=== PATIENT | male | born 1935 | race Caucasian/White ===

== ENCOUNTER 2022-06-26 12:25 | Outpatient (CLI) | payer OTHER | END 2022-06-26 12:26 | disposition home or self-care (01) | LOC: ULT 12:25 | PROVIDERS: ATTEND Student in an Organized Health Care Education/Training Program | DX: R60.0 Localized edema (principal); I08.1 Rheumatic disorders of both mitral and tricuspid valves; I51.7 Cardiomegaly | CPT/HCPCS: 93306 ==

== ENCOUNTER 2025-03-31 09:56 | Emergency (ER) | payer MEDICARE ==
[2025-03-31 12:41] LABS: #Basophils 0.04 10x3/uL (0.0-0.2); #Eosinophils Less than 0.03 10x3/uL (0.0-0.7); #Monocytes 1.24 10x3/uL (0.11-0.59); #Neutrophils 4.37 10x3/uL (1.40-6.50); %Basophils 0.6 % (0.0-1.0); %Eosinophils 0.1 % (0.0-10.0); %Lymphocytes 21.1 % (21.0-51.0); %Monocytes 17.2 % (0.0-10.0); %Neutrophils 60.6 % (42.0-75.0); Hematocrit 40.6 % (42.0-52.0); Hemoglobin 13.6 g/dL (14.0-18.0); Mean Corpuscular Hemoglobin 28.6 pg (27.0-31.0); Mean Corpuscular Volume 85.3 fL (78.0-98.0); Platelet Count 109 10x3/uL (130-400); Red Blood Cell (RBC) Count 4.76 mill/uL (4.70-6.10); White Blood Cell (WBC) Count 7.21 10x3/uL (4.8-10.8)
[2025-03-31 13:06] LABS: Burr Cells SLIGHT = 2-5 cells HPF (0-1); Platelet Adequacy Comment Platelets Decreased
[2025-03-31 13:28] LABS: ALT (SGPT) 18 U/L (Less than 45); AST (SGOT) 32 U/L (11-34); Albumin 3.3 g/dL (3.1-4.5); Alkaline Phosphatase 65 U/L (40-110); BUN (Urea Nitrogen) 12 mg/dL (8.4-25.7); Bilirubin, Total 0.5 mg/dL (0.3-1.2); Calc. Creatinine Clearance 0 mL/min (70-130); Calcium 8.2 mg/dL (7.8-10.44); Chloride 101 mmol/L (98-107); Globulin 3.0 g/dL (2.4-3.5); Glucose 82 mg/dL (83-110); Magnesium 1.4 mg/dL (1.6-2.6); Potassium 3.7 mmol/L (3.5-5.1); Sodium 136 mmol/L (136-145)
[2025-03-31 13:46] LABS: Carbon Dioxide 26 mmol/L (23-31)
[2025-03-31 14:04] LABS: Anion Gap 13 mmol/L (10-20)
[2025-03-31] MEDS ORDERED: Magnesium 2 GM/50 ML BAG (IN WATER) ONE (14:47)
== END 2025-03-31 16:02 | disposition home or self-care (01) ==
LOC: ERS 09:56
DX: U07.1 COVID-19 (principal); S51.001A Unspecified open wound of right elbow, initial encounter; E83.42 Hypomagnesemia; E11.9 Type 2 diabetes mellitus without complications; I10 Essential (primary) hypertension; E78.5 Hyperlipidemia, unspecified; Z23 Encounter for immunization; Z55.6 Problems related to health literacy; Z79.2 Long term (current) use of antibiotics; Z79.84 Long term (current) use of oral hypoglycemic drugs; Z79.899 Other long term (current) drug therapy; W01.10XA Fall on same level from slipping, tripping and stumbling with subsequent striking against unspecified object, initial encounter
CPT/HCPCS: 71045; 73080; 80053; 83735; 85025; 87428; 90471; 90715; 93005; 96365; 99284; J3475